=== PATIENT | female | born 1985 | race Two or more races ===

== ENCOUNTER 2020-11-07 12:21 | Emergency (ER) | payer SELFPAY ==
[~2020-11-07] VITALS: Ht 152.4 cm; Wt 95.4 kg
[2020-11-07] MEDS ORDERED: MORPHINE SULFATE 4 MG/ML VIAL. IV ONE ×2 (13:15→14:15)
[2020-11-07] MEDS ORDERED: ONDANSETRON PF 4 MG/2 ML VIAL. IVP ONE (13:15)
[2020-11-07 13:19] LABS: BASO % 0 % (0-3); EOS # 0.1 x10^3/uL (0.0-0.7); EOS % 1 % (0-3); HEMATOCRIT 38.7 % (36.0-47.0); HEMOGLOBIN 12.9 g/dL (12.0-15.5); LYMPH # 1.7 x10^3/uL (1.0-4.8); LYMPH % 15 % (24-48); MEAN CORPUSCULAR HEMOGLOBIN 27 pg (25-35); MEAN CORPUSCULAR HGB CONC 33 g/dL (31-37); MEAN CORPUSCULAR VOLUME 82 fL (79-100); MONO # 0.5 x10^3/uL (0.0-1.1); MONO % 5 % (0-9); NEUT # 9.3 x10^3/uL (1.8-7.7); NEUT % 79 % (31-73); PLATELET COUNT 275 x10^3/uL (140-400); RED BLOOD COUNT 4.74 x10^6/uL (3.50-5.40); RED CELL DISTRIBUTION WIDTH 14.3 % (11.5-14.5); WHITE BLOOD COUNT 11.8 x10^3/uL (4.0-11.0)
[2020-11-07 13:29] LABS: CALCIUM 8.9 mg/dL (8.5-10.1); CREATININE 1.1 mg/dL (0.6-1.0); GFR 56.5; POTASSIUM 4.1 mmol/L (3.5-5.1)
[2020-11-07] MEDS ORDERED: IOHEXOL 300 MG/ML 100ML VIAL. IV ONE (13:30)
[2020-11-07 13:31] LABS: PREG TEST PT QUAL NEGATIVE (NEG)
[2020-11-07 13:35] LABS: ALBUMIN 3.4 g/dL (3.4-5.0); ALBUMIN/GLOBULIN RATIO 0.7 (1.0-1.7); TOTAL BILIRUBIN 0.5 mg/dL (0.2-1.0); TOTAL PROTEIN 8.1 g/dL (6.4-8.2)
[2020-11-07] MEDS ORDERED: CONTRAST GIVEN. MC PRN (13:45)
--- NOTE | 2020-11-07 14:07 | RAD ---
Study: CT abdomen/pelvis with intravenous contrast Indication: Abdominal pain. Comparison: None. Technique: Helical CT imaging performed of the abdomen and pelvis after the intravenous administratio n of 75 cc Omnipaque 300 contrast. Sagittal and coronal reformats were obtained. One or more of the following individualized dose reduction techniques were utilized for this examinat ion: 1. Automated exposure control 2. Adjustment of the mA and/or kV according to patient size 3. Use of iterative reconstruction technique. Findings: No nodule at the lower aspect of either lung that would meet size criteria for dedicated follow-up. N o infiltrate or pleural effusion. Unremarkable visualized mediastinal contents. The liver measures prominent in size. The spleen is within normal limits for size. The gallbladder an d biliary tree are unremarkable. No peripancreatic inflammation. Indeterminant adrenal gland mass on the right measuring 1.3 x 1.7 x 1.4 cm with an internal density of around 30 Hounsfield units. Mild hydroureteronephrosis on the right in the setting of a probable punctate stone at the ureteroves icular junction, coronal image 35 and more faintly on image 79 series 2. Findings in keeping with a c omponent of obstructive uropathy with the right kidney exhibiting less enhancement relative to the le ft and mild perinephric edema. Additional punctate intrarenal stone at the lower pole the right kidne y. Tiny intrarenal stones on the left without collecting system obstruction. Unremarkable urinary bassam dder. Unremarkable uterus and adnexa for patient age with a small right ovarian cyst or dominant foll icle measuring up to 1.8 cm. Unremarkable colon, appendix, small bowel and stomach. Within normal limits major vasculature. No lym phadenopathy by size criteria. No acute or aggressive osseous process. Incompletely evaluated disc bu lges at the mid to lower lumbar spine. There are also several disc osteophyte protrusions. Impression: 1. Mild hydroureteronephrosis on the right in the setting of a tiny stone at the ureterovesicular ju nction measuring no more than 1.5 mm. Manifestations of obstructive uropathy on the right with less p ronounced enhancement of the right kidney relative to the left and mild perinephric edema. 2. Additional punctate intrarenal stone on the right and a few small intrarenal stones on the left. No collecting system obstruction on the left. 3. Indeterminate right adrenal gland mass measuring up to 1.7 cm. A lipid poor adenoma is favored bu t this would be confirmed with an adrenal gland mass protocol CT or MRI on a nonemergent basis. 4. Prominent size of the liver. The spleen is normal in size. 5. Somewhat age accelerated degenerative changes of the visualized spine. There may be intrinsic chencho rowing of the central canal as well. If there are radicular symptoms nonemergent/outpatient MRI would allow for better characterization. Electronically signed by: JOSE ARMANDO EDGE MD (11/07/2020 2:04 PM) [id number]
[2020-11-07] MEDS ORDERED: IV NORMAL SALINE 1000ML BAG 1,000 ML IV ONE (15:00)
[2020-11-07] MEDS ORDERED: KETOROLAC 15 MG/ML VIAL. IVP ONE (15:00)
[2020-11-07] MEDS ORDERED: KETOROLAC 30 MG/ML VIAL. ONE (15:03)
--- NOTE | 2020-11-07 15:04 | PHYS DOC ---
Past Medical History Past Medical History: No Pertinent History Past Surgical History: No Surgical History Smoking Status: Current Some Day Smoker Alcohol Use: None Drug Use: None Adult General Chief Complaint Chief Complaint: ABDOMINAL PAIN HPI HPI Patient is a 35 year old female no significant past medical presents emergency department complaining of new onset of abdominal pain. Patient states over the last 6 hours he developed worsening sensation of pain in the right lower quadrant. Is been associate with mild episode of nausea. Denies any dysuria pyuria. Patient denies any back pain, presented some mild subjective fever. Review of Systems Review of Systems Constitutional: Denies fever or chills [] Eyes: Denies change in visual acuity, redness, or eye pain [] HENT: Denies nasal congestion or sore throat [] Respiratory: Denies cough or shortness of breath [] Cardiovascular: No additional information not addressed in HPI [] GI: Denies abdominal pain, nausea, vomiting, bloody stools or diarrhea [] : Denies dysuria or hematuria [] Musculoskeletal: Denies back pain or joint pain [] Integument: Denies rash or skin lesions [] Neurologic: Denies headache, focal weakness or sensory changes [] Endocrine: Denies polyuria or polydipsia [] All other systems were reviewed and found to be within normal limits, except as documented in this note. Current Medications Current Medications Current Medications Medications (Trade) Dose Ordered Sig/Joseph Start Time Stop Time Status Last Admin Dose Admin Info (CONTRAST GIVEN -- Rx MONITORING) 1 each PRN DAILY PRN 11/07/20 13:45 11/09/20 13:44 Iohexol (Omnipaque 300 Mg/ml) 75 ml 1X ONCE 11/07/20 13:30 11/07/20 13:36 DC 11/07/20 13:54 75 ML Ketorolac Tromethamine (Toradol 15mg Vial) 15 mg 1X ONCE 11/07/20 15:00 11/07/20 15:04 DC 11/07/20 15:08 15 MG Ketorolac Tromethamine (Toradol 30mg Vial) 30 mg STK-MED ONCE 11/07/20 15:03 11/07/20 15:03 DC Morphine Sulfate (Morphine Sulfate) 4 mg 1X ONCE 11/07/20 14:15 11/07/20 14:16 DC 11/07/20 15:02 4 MG Ondansetron HCl (Zofran) 4 mg 1X ONCE 11/07/20 13:15 11/07/20 13:16 DC 11/07/20 13:08 4 MG Sodium Chloride 1,000 ml @ 1,000 mls/hr 1X ONCE 11/07/20 15:00 11/07/20 15:59 DC 11/07/20 15:07 1,000 MLS/HR Allergies Allergies Allergies Coded Allergies Type Severity Reaction Last Updated Verified No Known Drug Allergies 03/31/15 No Physical Exam Physical Exam Constitutional: Well developed, well nourished, no acute distress, non-toxic appearance. [] HENT: Normocephalic, atraumatic, bilateral external ears normal, oropharynx moist, no oral exudates, nose normal. [] Eyes: PERRLA, EOMI, conjunctiva normal, no discharge. [] Neck: Normal range of motion, no tenderness, supple, no stridor. [] Cardiovascular:Heart rate regular rhythm, no murmur [] Lungs & Thorax: Bilateral breath sounds clear to auscultation [] Abdomen: Bowel sounds normal, soft, moderate right lower quadrant tenderness without rebound, no masses, no pulsatile masses. [] Skin: Warm, dry, no erythema, no rash. [] Back: No tenderness, no CVA tenderness. [] Extremities: No tenderness, no cyanosis, no clubbing, ROM intact, no edema. [] Neurologic: Alert and oriented X 3, normal motor function, normal sensory function, no focal deficits noted. [] Psychologic: Affect normal, judgement normal, mood normal. [] Current Patient Data Vital Signs Vital Signs Date Time Temp Pulse Resp B/P (MAP) Pulse Ox O2 Delivery O2 Flow Rate FiO2 11/07/20 15:02 20 98 Room Air 11/07/20 12:35 98.0 79 148/72 (97) 98.0 Lab Values Laboratory Tests Test 11/07/20 12:35 11/07/20 13:00 POC Urine HCG, Qualitative Hcg negative (Negative) White Blood Count 11.8 x10^3/uL (4.0-11.0) H Red Blood Count 4.74 x10^6/uL (3.50-5.40) Hemoglobin 12.9 g/dL (12.0-15.5) Hematocrit 38.7 % (36.0-47.0) Mean Corpuscular Volume 82 fL (79-100) Mean Corpuscular Hemoglobin 27 pg (25-35) Mean Corpuscular Hemoglobin Concent 33 g/dL (31-37) Red Cell Distribution Width 14.3 % (11.5-14.5) Platelet Count 275 x10^3/uL (140-400) Neutrophils (%) (Auto) 79 % (31-73) H Lymphocytes (%) (Auto) 15 % (24-48) L Monocytes (%) (Auto) 5 % (0-9) Eosinophils (%) (Auto) 1 % (0-3) Basophils (%) (Auto) 0 % (0-3) Neutrophils # (Auto) 9.3 x10^3/uL (1.8-7.7) H Lymphocytes # (Auto) 1.7 x10^3/uL (1.0-4.8) Monocytes # (Auto) 0.5 x10^3/uL (0.0-1.1) Eosinophils # (Auto) 0.1 x10^3/uL (0.0-0.7) Basophils # (Auto) 0.0 x10^3/uL (0.0-0.2) Sodium Level 141 mmol/L (136-145) Potassium Level 4.1 mmol/L (3.5-5.1) Chloride Level 106 mmol/L (98-107) Carbon Dioxide Level 19 mmol/L (21-32) L Anion Gap 16 (6-14) H Blood Urea Nitrogen 10 mg/dL (7-20) Creatinine 1.1 mg/dL (0.6-1.0) H Estimated GFR (Cockcroft-Gault) 56.5 BUN/Creatinine Ratio 9 (6-20) Glucose Level 149 mg/dL (70-99) H Calcium Level 8.9 mg/dL (8.5-10.1) Total Bilirubin 0.5 mg/dL (0.2-1.0) Aspartate Amino Transferase (AST) 12 U/L (15-37) L Alanine Aminotransferase (ALT) 24 U/L (14-59) Alkaline Phosphatase 62 U/L (46-116) Creatine Kinase 79 U/L (26-192) Total Protein 8.1 g/dL (6.4-8.2) Albumin 3.4 g/dL (3.4-5.0) Albumin/Globulin Ratio 0.7 (1.0-1.7) L Serum Test, Qualitative Negative (NEG) Laboratory Tests 11/07/20 13:00 Laboratory Tests 11/07/20 13:00 EKG EKG [] Radiology/Procedures Radiology/Procedures [] Course & Med Decision Making Course & Med Decision Making Pertinent Labs and Imaging studies reviewed. (See chart for details) 35-year-old female with new onset of right lower quadrant abdominal pain with significant tenderness in the area. Differential diagnosis includes but not limited to acute appendicitis, renal stone, ovarian torsion, ovarian cyst. At this time will obtain basic labs and a CT scan of the abdomen to make sure there is no acute evidence of acute appendicitis. 17:59 - CT scan demonstrating 1.5 cm right sided stone with minimal evidence of hydronephrosis. No evidence of acute kidney injury suggest no further issues. No evidence of infection at this time. Patient now states that her symptoms are well controlled. This time will discharge home with pain control and urology I spoken with the patient and her caregivers. I explained the patient's condition, diagnoses and treatment plan based on the information available to me at this time. I have answered the patient and her caregiver's questions and addressed any concerns. The patient and her caregivers have a good un derstanding of patient's diagnosis, condition and treatment plan as can be expected at this point. Vital signs have been stable. Patient's condition is stable and appropriate for discharge from the emergency department. Patient will pursue further outpatient evaluation with primary care physician or other designated or consulting physician as outlined in the discharge instructions. The patient and/or caregivers are agreeable to this plan of care and follow-up instructions have been explained in detail. The patient and/or caregivers have received these instructions in written form and have expressed an understanding of the discharge instructions. The patient and/or caregivers are aware that any significant change of condition or worsening of symptoms should prompt immediate return to this or the closest emergency department or call to 911. Naveen Disclaimer Dragon Disclaimer This electronic medical record was generated, in whole or in part, using a voice recognition dictation system. Departure Departure Impression: Primary Impression: Right renal stone Disposition: 01 DC HOME SELF CARE/HOMELESS Condition: Referrals: NO PCP (PCP) Patient Instructions: Kidney Stones Scripts Oxycodone/Apap 5-325 (PERCOCET 5-325 MG TABLET ) 1 Each Tablet 1 TAB PO PRN Q6HRS PRN for PAIN, #12 TAB 0 Refills Prov: ABELINO BELLO MD 11/07/20 Tamsulosin Hcl (FLOMAX) 0.4 Mg Cap.er.24h 0.4 MG PO DAILY, #30 TAB Prov: ABELINO BELLO MD 11/07/20 ABELINO BELLO MD Nov 07, 2020 15:04
[2020-11-07] MEDS ORDERED: OXYC1TAB15 PO (17:32)
[2020-11-07] MEDS ORDERED: TAMS0.4C97 PO (17:32)
[2020-11-07 17:56] LABS: BILIRUBIN,URINE NEGATIVE (NEG); CLARITY,URINE CLEAR; COLOR,URINE YELLOW; NITRITE,URINE NEGATIVE (NEG); PH,URINE 5.5 (<5.0-8.0); PROTEIN,URINE NEGATIVE (NEG-TRACE); UROBILINOGEN,URINE 0.2 mg/dL (0.2 mg/dL)
[2020-11-07 18:00] VITALS: BP 155/71
[2020-11-07 18:01] LABS: RBC,URINE OCC /HPF (0-2)
[2020-11-07 18:02] LABS: BACTERIA,URINE FEW /HPF (0-FEW)
== END 2020-11-07 18:17 | disposition home or self-care (01) ==
LOC: ER 12:21
DX: N13.2 Hydronephrosis with renal and ureteral calculous obstruction (principal); R10.31 Right lower quadrant pain; R20.2 Paresthesia of skin; R11.0 Nausea; Z87.891 Personal history of nicotine dependence
CPT/HCPCS: 36415; 74177; 80053; 81001; 81025; 82550; 84703; 85025; 96361; 96374; 96375; 96376; 99285; J1885; J2270; J2405; J7030; Q9967